=== PATIENT | male | born 1990 | race Two or more races ===

== ENCOUNTER 2024-07-28 06:41 | Emergency (ER) | payer MEDICAID, SELFPAY ==
[2024-07-28 06:41] VITALS: BMI 34.0
[2024-07-28 07:00] VITALS: BP 141/73; PULSE 100; RESP 20; TEMP 36.8; O2SAT 96
--- NOTE | 2024-07-28 07:08 | EDRME_ITS ---
Rapid Medical Screening Exam [facility] Arrival date/time: 07/28/24 06:41 33-year-old male with no known medical history presents to the emergency room with a chief complaint of an erection that is lasted since Saturday night. Patient states he took a sleeping pill that was given to him by a friend. Patient states he is not having pain to the penis as well as the groin area. I have greeted and performed a focused initial assessment of this patient. A comprehensive ED assessment and evaluation of the patient, analysis of all test results, and completion of the medical decision making process will be conducted by additional ED providers. Chief Complaint: Urogenital-Male Time Seen by Provider: 07/28/24 06:47 Vital signs: Vital Signs Temperature 98.2 F 07/28/24 07:00 Pulse Rate 100 07/28/24 07:00 Respiratory Rate 20 07/28/24 07:00 Blood Pressure 141/73 H 07/28/24 07:00 Pulse Oximetry (%) 96 07/28/24 07:00 Oxygen Delivery Method Room Air 07/28/24 07:00 Vital signs reviewed by provider: Yes
--- NOTE | 2024-07-28 07:30 | PC.NURSE ---
PT'S LUNG SOUNDS CLEAR THROUGHOUT ALL BASES AT THIS TIME. PT DENYING ANY BACK PAIN OR ITCHINESS. PT LAYING ON BED WITH EQUAL CHEST RISE & FALL NOTED,.
--- NOTE | 2024-07-28 07:45 | PD.EDMALE ---
ED Male Genitalurinary RME/HPI General Chief complaint: Urogenital-Male Stated complaint: SWOLLEN PENIS SINCE SATURDAY MORNING Time Seen by Provider: 07/28/24 06:47 Arrival date/time: 07/28/24 06:41 RME / HPI RME / HPI Narrative: 07/28/24 06:41 33-year-old male with no known medical history presents to the emergency room with a chief complaint of an erection that is lasted since Saturday night. Patient states he took a sleeping pill that was given to him by a friend. Patient states he is not having pain to the penis as well as the groin area. I have greeted and performed a focused initial assessment of this patient. A comprehensive ED assessment and evaluation of the patient, analysis of all test results, and completion of the medical decision making process will be conducted by additional ED providers. DR. AVENDAÑO MAIN ED EVALUATION: 33 y/o male present to ED c/o priapism x 4 days s/p taking an unknown pill with Trazadone and Melatonin x 4 days ago. Patient reports obtaining unknown pill from his step-father. Denies any fever, chills, cough, or runny nose. Patient denies any bleeding. No modifying factors reported. No other concerns or complaints expressed at this time. Patient also mentions being seen in [place] ED and was treated with unknown medication, but reports no improvement. Related Data Home Medications ?Medication ?Instructions ?Recorded ?Confirmed Unobtainable 06/24/17 06/24/17 Allergies Allergy/AdvReac Type Severity Reaction Status Date / Time No Known Allergies Allergy Verified 06/24/17 04:27 Review of Systems Review of Systems Systems Reviewed: All systems reviewed, normal except as documented Narrative Review of Systems: Constitutional: DENIES; Fevers Eyes: DENIES; Loss of vision Head/Ear/Nose: DENIES; Loss of hearing Throat: DENIES; Dysphagia Cardiovascular: DENIES; Chest pain, dyspnea or syncope Respiratory: DENIES; Shortness of breath Gastrointestinal: DENIES; Rectal bleeding or melena. Genitourinary: POSITIVE; Priapism, DENIES; Dysuria (painful or difficult urination) Musculoskeletal: DENIES; Arthralgia (pain in a joint),; Skin: DENIES; Rash Neurological: DENIES; Loss of function or movement Psychiatric: DENIES; recent major life stressor, emotional problem, illicit drug use or abuse Endocrinology: DENIES; Weight change Hematologic/Lymphatic: DENIES; Abnormal bruising Allergic/Immunologic: DENIES; Urticaria (hives) Past Medical History Social History SMOKING STATUS: Current some day smoker SUBSTANCE USE: does not use ALCOHOL: Current (occasionally) ED Exam Narrative Physical exam: Physical Exam: General: The vital signs were reviewed. The patient is non-toxic, in no apparent distress and appears healthy with a patent airway, no respiratory distress and has no apparent circulatory problems. Head & Scalp: Normocephalic, atraumatic. Face: Appears normal and is without lesions, deformity. Ears: Left external pinna appears normal. Right external pinna appears normal. Eyes: The sclera is anicteric. No obvious photophobia. The Left and Right Orbit/Lid/Conjunctiva appears normal without swelling, discoloration or injection. Nose: The nose is without deformity, discharge or tenderness; Throat: Appears normal. The mucous membranes are pink and moist without exudates, redness or mass seen. The tongue appears normal. Neck: The neck is supple and no apparent mass or adenopathy. Chest: The chest wall is normal in size and symmetry and has no chest wall tenderness or crepitus. The patient displays normal ventilator effort without retractions, accessory muscle use and has adequate air movement bilaterally with no wheezes and no rales. Cardiovascular: Regular rate and rhythm; No murmurs, rubs, or gallops; Gastrointestinal: The abdomen appears normal. Has No obvious hernias or mass. The abdomen has some vague lower abdominal discomfort otherwise is soft and benign, non-distended, with no pain, no guarding and no rebound tenderness. Bowel sounds are present and normal sounding. No CVA tenderness. Genitourinary: Patient has an obvious priapism. Scrotum appear normal testes are slightly ascended but palpable and present no mass. Back/Spine: Normal inspection Extremities/Musculoskeletal/lymphatic: The bilateral upper and lower extremities are warm. There is no evidence of arterial insufficiency. There is no evidence of venous insufficiency/edema. The patient spontaneously moves bilateral upper and lower extremities with no pain and no limitation of movement. There is no apparent, injury or trauma. Skin: The skin is warm, dry and intact. No rashes. No petechia. No purpura. No abnormal bruising. The color is appropriate with no cyanosis. Mental status/Psychiatric: Mental status is appropriate for age. The patient has no apparent delusions, visual hallucinations, no apparent audible hallucinations. The patient has no apparent suicidal thoughts/ideation and no apparent homicidal thoughts/ideation. Neurological: The patient is awake, alert, interactive, cordial, cooperative and is oriented to name and situation. The patient follows commands and answers historical question with no impairment. There is no visual disturbance apparent. The pupils are equal and reactive bilaterally with normal eye movements and no diplopia The bilateral upper and lower extremities have normal strength, normal range of motion and normal functioning. The gait, station and balance appear to be baseline with no acute change Course Quality Measures none Orders Category Date Time Status Miscellaneous Nursing Order NOW Care 07/28/24 07:53 Completed NPO NEEDED Care 07/28/24 07:53 Completed NPO NOW Care 07/28/24 07:53 Completed Diet NPO (NOW) Diet 07/28/24 07:53 Active Transfer to another facility [Transfer/Discharge] Stat Discharge 07/28/24 07:58 Active B-Type Natriuretic Peptide Stat Lab 07/28/24 09:34 Completed CBC Stat Lab 07/28/24 09:34 Completed Comprehensive Metabolic Panel Stat Lab 07/28/24 09:34 Completed Lactate (Lactic Acid) Stat Lab 07/28/24 09:34 Completed Lipase Stat Lab 07/28/24 09:34 Completed Troponin I Stat Lab 07/28/24 09:34 Completed Venous Blood Gas Stat Lab 07/28/24 09:34 Completed Morphine Inj Med 07/28/24 07:55 Discontinued 5 mg IVP X1 ONE Morphine Inj Med 07/28/24 10:35 Discontinued 5 mg IVP X1 ONE Ondansetron Inj [Zofran Inj] Med 07/28/24 07:55 Discontinued 4 mg IV X1 ONE Vital Signs Vital signs: Vital Signs Temperature 98.2 F 07/28/24 07:00 Pulse Rate 100 07/28/24 07:00 Respiratory Rate 20 07/28/24 07:00 Blood Pressure 141/73 H 07/28/24 07:00 Pulse Oximetry (%) 96 07/28/24 07:00 Oxygen Delivery Method Room Air 07/28/24 07:00 Procedures -ED Procedure Comment Interpreted by the emergency provider. Time: 08 Informed consent, after discussion of the risks, benefits, alternatives to the procedure, were obtained. A timeout to verify the correct patient, procedure, and site was performed. Indication: Lower abdomen and groin swelling Structures/organs investigated: Bladder Interpretation: Distended, measuring approximately 113 mL Patient tolerated the procedure well with no immediate complications Urogenital - Male MDM Narrative MDM Narrative:: Because patient's not able to urinate normally 1 to make sure he did not have urinary retention and I took the ultrasound in the room and he is got a radius of approximately 3 to 4 cm of his bladder in various directions. And just grossly the patient's urine volume is probably closer to 130 but could be as high as 200. Labs are pending to rule in or out any acute renal obstructive failure Labs are pending I called the transfer nurse Mai to work on a stat transfer for urological services for priapism x [address] a call to our local urologist Dr. Govea who is not on-call and he states he is not available. After doing the ultrasound I went back in the room and the reports that the patient went to [place] yesterday and had some injections of his penis but nothing worked and they evidently discharge him without any urology referral despite no change in the priapism. I have no medical records to corroborate that information. Transfer nurse from [facility] called back and they connect me with a urologist Dr. Gregorio we had a pleasant discussion. He kindly agreed to accept this patient in transfer as it has been 4 days. I explained we have no urology on-call no urologist to help us out and I have canopy inspector with draining cavernosum. At 0930 hrs. lab arrived and just starting to draw the labs. Contacted our transfer nurse Mai and they are working on ambulance transport to [place]. Patient was advised to remain NPO. He is more comfortable after the morphine. And reevaluation shows no change in the priapism despite the ice pack. All labs are still pending at this time. Transfer nurse arranged for transfer. Medical workup came back in a delayed fashion with a white count of 13.5 hemoglobin of 12.5 platelet count was normal. Venous blood gas pH is 7.40 pCO2 is slight retention at 52 of uncertain significance electrolytes are normal BUN/creatinine are 19 and 0.9. He is a little on the dry side by the BUN/creatinine ratio. Lactic acid is 0.6. Transaminases and bilirubin are normal troponin is negative BNP is negative lipase slightly elevated at 301. Urine was not able to be collected we felt it was best not to catheterize him at this time and they can do this at the follow-up facility since he is not febrile does not appear to be septic. Patient was advised to be transferred for urology emergency evaluation. Patient data External records reviewed:: [facility] previous records (No prior records shown.) and None Clinical information provided by:: patient Social determinants that could affect healthcare access:: none Patient has the following chronic illnesses:: N/A How is presenting disease/condition affected by chronic disease/condition?: no chronic disease Evaluation data The following diagnostics were reviewed and interpreted by me:: lab results and radiology exam(s) Lab and/or radiology exams considered but not ordered:: None Interpretation Summary: See MDM narrative. Medications / Prescriptions Medications or Prescriptions considered but not ordered:: None Medication administrations:: Medication Administration History Discontinued Medications Morphine Sulfate (Morphine Sulf Inj 10 Mg/Ml Vial) 5 mg IVP X1 ONE Stop: 07/28/24 07:56 Last Admin: 07/28/24 08:28 Dose: 5 mg Documented By: NO Morphine Sulfate (Morphine Sulf Inj 10 Mg/Ml Vial) 5 mg IVP X1 ONE Stop: 07/28/24 10:36 Last Admin: 07/28/24 10:43 Dose: 5 mg Documented By: Ondansetron HCl (Ondansetron Inj 2 Mg/Ml Inj 2 Ml) 4 mg IV X1 ONE; Protocol Stop: 07/28/24 07:56 Last Admin: 07/28/24 08:28 Dose: 4 mg Documented By: NO See above if any. Consultations Consultation(s) initiated? (list below): Yes Consultation #1 (Physician, Specialty, Details): Discussed test HPI, PMHx, lab, radiology results and/or management with Dr. Floyd. Dr. Floyd refused to consult and recommends transfer. Time: 07:58 Consultation #2 (Physician, Specialty, Details): Discussed case with transfer nurse from [facility]. Time: 09:20 Consultation #3 (Physician, Specialty, Details): Discussed test HPI, PMHx, lab, radiology results and/or management with Dr. Gregorio. Dr. Gregorio accepts patient for transfer. Time: 09:25 Diagnosis Urogenital Male Differential Diagnosis: priapism, urethritis and acute retention of urine Most likely diagnosis given after review of the tests above:: Priapism Admission Indicated Admission indicated?: not indicated Explain why admission is indicated or not indicated:: Patient needs to be transferred due to higher level of care. Admission Request Was there a request for admission?: No Disposition Plan Disposition Plan: Transfer Discharge Plan Plan Patient Disposition: [facility] Pt Being Transferred to: [facility] Service Needed for Transfer: Urology Prescriptions/Referrals Prescriptions/Med Rec: No Action Unobtainable Referrals: Temporary Provider,ED [Primary Care Provider] - In 1 week Problem List Clinical Impression: Priapism, Elevated lipase Patient/Caregiver Discharge Instructions Print Language: Bahamian Stand Alone Forms: [employer]fani Award Info., Patient Portal Info Letter
--- NOTE | 2024-07-28 08:25 | PC.CC ---
[id number]- received transfer request from ED Dr. Guidry need for Urology for Priapism
[2024-07-28 08:26] VITALS: BP 144/85; PULSE 94; RESP 16; O2SAT 99
[2024-07-28] MEDS: ONDANSETRON INJ 2 MG/ML INJ 2 ML 4 MG IV (08:28)
[2024-07-28] MEDS: MORPHINE SULF INJ 10 MG/ML VIAL 5 MG IVP ×2 (08:28→10:43)
--- NOTE | 2024-07-28 09:08 | PC.CM ---
[id number] transfer paperwork sent to [facility]
--- NOTE | 2024-07-28 09:13 | PC.CM ---
Addendum entered by Ale Churchill RN 07/28/24 11:28: 1045- ambulance transport set up with [place], forklift picker time of 1200, completed packet handed to ED charge out clerk, updated with time. Addendum entered by Ale Churchill RN 07/28/24 09:50: 0949 PT accepted [facility] ED to ED, DR. Radha Gregorio. Number for report [phone] Original Note: 0913 Spoke to Harmony at [facility] verbally initiated transfer request. Transferred Harmony to ED doctor.
[2024-07-28 09:41] LABS: Base Excess, Venous 6 (-3-3); O2 Saturation, Venous 40 % (96-97); PCO2, Venous 52 mmHg (36-56); PO2, Venous 24 mmHg (15-58)
[2024-07-28 09:42] LABS: Lactate (Lactic Acid) 0.6 mMol/L (0.4-2.0)
[2024-07-28 09:54] LABS: Basophils % (Auto) 0 % (0-2.5); Eosinophils # (Auto) 0.1 Thou/mm3 (0.0-0.5); Eosinophils % (Auto) 0 % (0-10); Hematocrit 37.1 % (41.0-53.0); Hemoglobin 12.5 g/dL (13.5-16.0); Immature Granulocytes % (Auto) 0 % (0-0); Immature Granulocytes Auto 0.06 Thou/mm3 (0.00-0.00); Lymphocytes # (Auto) 1.4 Thou/mm3 (1.0-4.8); Lymphocytes % (Auto) 10 % (10-50); Mean Corpuscular HGB Conc 33.7 g/dl (31.0-37.0); Mean Corpuscular Hemoglobin 30.9 pg (25.0-35.0); Mean Corpuscular Volume 92 fL (80-100); Monocytes % (Auto) 8 % (0-12); Neutrophils # (Auto) 10.9 Thou/mm3 (1.8-7.7); Neutrophils % (Auto) 81 % (37-80); Nucleated Red Blood Cell % 0 /100 WBC (0); Platelet Count 280 Thou/mm3 (140-440); RDW Standard Deviation 44.8 fL (35.1-43.9); Red Blood Count 4.05 Miln/mm3 (4.50-5.90); White Blood Count 13.5 Thou/mm3 (3.8-10.6)
[2024-07-28 10:08] LABS: B-Type Natriuretic Peptide < 20 pg/mL (0-100)
[2024-07-28 10:09] LABS: Alanine Aminotransferase 22 U/L (10-49); Albumin, Serum 4.3 gm/dL (3.5-5.0); Albumin/Globulin Ratio 1.4 (1.2-2.2); Alkaline Phosphatase 60 U/L (46-116); Anion Gap 10 (7-16); Aspartate Amino Transferase 19 U/L (0-34); BUN/Creatinine Ratio 21 Ratio (12-20); Bilirubin,Total 0.8 mg/dL (0.3-1.2); Blood Urea Nitrogen 19 mg/dL (9-23); Calcium 9.3 mg/dL (8.3-10.6); Calcium (Corrected) 9.3 mg/dL (8.5-10.1); Carbon Dioxide 29.2 mMol/L (20.0-31.0); Chloride 98 mMol/L (98-107); Creatinine (Component) 0.9 mg/dL (0.6-1.3); Estimated Creatinine Clearance 141.5 mL/min (>60); Glucose 94 mg/dL (74-106); Lipase 301 U/L (12-53); Osmolality,Calculated 276 (275-295); Potassium 3.6 mMol/L (3.4-5.1); Sodium 137 mMol/L (136-145); Total Protein 7.3 gm/dL (5.7-8.2); Troponin I < 0.020 ng/mL (0.0-0.045); eGFR > 60 See Note
--- NOTE | 2024-07-28 10:39 | PC.NURSE ---
SPOKE TO JUSTICE FERNANDES FROM [facility] FOR RN-RN SBAR REPORT.
[2024-07-28 10:44] VITALS: BP 133/85; PULSE 92; RESP 19; TEMP 37.1; O2SAT 99
--- NOTE | 2024-07-28 12:01 | PC.NURSE ---
REPORT GIVEN TO EMS AT BEDSIDE; EMS TO TRANSPORT PT TO [facility] FOR TRANSFER.
== END 2024-07-28 12:05 | disposition short-term general hospital (02) ==
PROVIDERS: Emergency Provider Emergency Medicine
DX: N48.30 Priapism, unspecified (principal); R74.8 Abnormal levels of other serum enzymes; Z75.1 Person awaiting admission to adequate facility elsewhere
CPT/HCPCS: 36415; 80053; 81001; 82803; 83605; 83690; 83880; 84484; 85025; 96374; 96375; 96376; 99285; J2270; J2405